=== PATIENT | male | born 1945 | race African-American/Black ===

== ENCOUNTER 2018-12-13 17:17 | Inpatient (IN) | payer MEDICARE ==
[~2018-12-13] VITALS: Ht 188 cm; Wt 77.9 kg
[2018-12-13] MEDS ORDERED: ACETAMINOPHEN 500 MG TABLET ONE (18:24)
[2018-12-13] MEDS ORDERED: MORPHINE SULFATE 4 MG/ML, 1ML ONE (18:24)
[2018-12-13] MEDS ORDERED: SODIUM CHLORIDE FLUSH 10ML SYR IVF ONE (18:30)
[2018-12-13] MEDS ORDERED: MORPHINE SULFATE 4 MG/ML, 1ML IVPush PRN (18:30)
[2018-12-13] MEDS ORDERED: ACETAMINOPHEN 500 MG TABLET PO ONE (18:30)
[2018-12-13 18:44] LABS: MEAN CORPUSCULAR HEMOGLOBIN 29.9 pg (27.5-34.5); MEAN CORPUSCULAR HGB CONC 32.8 g/dL (33.2-36.2); MEAN CORPUSCULAR VOLUME 91.2 fL (81-97); MEAN PLATELET VOLUME 8.9 fL (7.4-10.4); PLATELET COUNT 209 x10^3/uL (130-400); RED BLOOD COUNT 4.76 x10^6/uL (4.38-5.82); RED CELL DISTRIBUTION WIDTH 14.4 % (9.4-14.8)
[2018-12-13] MEDS ORDERED: PRED2.5T PO (18:44)
[2018-12-13] MEDS ORDERED: TRIAM/HCTZ PO (18:44)
[2018-12-13] MEDS ORDERED: FLUT1DIS5 IH (18:44)
[2018-12-13] MEDS ORDERED: BRIM5DRO2 EACHEYE (18:44)
[2018-12-13] MEDS ORDERED: ALLO300T PO (18:44)
[2018-12-13 18:54] LABS: INTERNATIONAL NORMALIZED RATIO 1.53 (0.93-1.1)
--- NOTE | 2018-12-13 18:54 | NUR ---
assumed care for this pt.
[2018-12-13 18:56] LABS: ALBUMIN 2.9 g/dL (3.4-5.0); ANION GAP 8 mmol/L (5-15); CHLORIDE 103 mmol/L (98-107)
[2018-12-13 19:00] LABS: ALANINE AMINOTRANSFERASE 14 U/L (12-78); ALKALINE PHOSPHATASE 107 U/L (45-117); BILIRUBIN,TOTAL 1.6 mg/dL (0.2-1.0); CREATININE 1.44 mg/dL (0.7-1.3); TOTAL PROTEIN 7.6 g/dL (6.4-8.2)
[2018-12-13 19:05] LABS: MD YES
[2018-12-13 19:08] LABS: <PLATELET ESTIMATE> ADEQUATE; <PLT MORPHOLOGY> NORMAL PLT MORPH; <RBC MORPHOLOGY> NORMAL; BAND#(MANUAL) 7.04 x10^3/uL; BANDS%(MANUAL) 31 % (0-7); LYMPH#(MANUAL) 1.14 x10^3/uL (1-3.4); LYMPHS% (MANUAL) 5 % (22-44); MONOS#(MANUAL) 1.59 x10^3/uL (0.3-2.7); MONOS% (MANUAL) 7 % (2-9); PMNS WITH VACUOLES 1+; SEG#(MANUAL) 12.94 x10^3/uL (1.8-6.8); SEGS% (MANUAL) 57 % (42-75)
--- NOTE | 2018-12-13 19:18 | NUR ---
CRIT LAB PROCAL=35.81 DR BATISTA NOTIFIED.
[2018-12-13] MEDS ORDERED: SODIUM CHLORIDE 0.9% 1,000ML IVBOLUS ONE (19:30)
[2018-12-13] MEDS ORDERED: PHARMACOKINETIC CONSULTATION MC ONE (19:30)
[2018-12-13] MEDS ORDERED: VANCOMYCIN 1,600 MG in SODIUM CHLORIDE 0.9% 250 ML IV ONE (19:30)
[2018-12-13] MEDS ORDERED: PIPERACILLIN/TAZO/PMX 3.375GM 50 ML IV ONE (19:30)
[2018-12-13] MEDS ORDERED: VANCOMYCIN PER PHARMACY MC PRN ×2 (19:30→20:30)
[2018-12-13] MEDS ORDERED: PIPERACILLIN/TAZO/PMX 3.375GM 50 ML ONE (19:58)
[2018-12-13] MEDS ORDERED: ONDANSETRON 2MG/ML, 2ML IVPB PRN (20:30)
[2018-12-13] MEDS ORDERED: PHARMACY MAY ADJ FOR RENAL FX MC PRN (20:30)
[2018-12-13] MEDS ORDERED: ACETAMINOPHEN 325 MG TABLET PO PRN (20:30)
--- NOTE | 2018-12-13 20:46 | NUR ---
REPORT CALLED AND IV MEDS RUNNING ORDERED. PT A/O X 4 AND VSS WITH BP AT 110/61 AND HR AT 105
[2018-12-13] MEDS ORDERED: ALBUTEROL SULFATE 2.5 MG/3 ML NPPB SCH (21:30)
[2018-12-13] MEDS ORDERED: BUDESONIDE 0.5 MG/2 ML INHA NPPB SCH (21:30)
[2018-12-13] MEDS ORDERED: PHARMACOKINETIC MONITORING MC PRN (21:30)
[2018-12-13 22:00] VITALS: BP 100/66
[2018-12-13] MEDS: SODIUM CHLORIDE 0.9% 1,000 ML IV SCH (22:03)
[2018-12-13] MEDS: VANCOMYCIN 1,600 MG in SODIUM CHLORIDE 0.9% 250 ML IV SCH (22:03)
[2018-12-13] MEDS: ENOXAPARIN 40 MG/0.4 ML SQ SCH (23:42)
--- NOTE | 2018-12-13 23:44 | NUR ---
PT MEDICATED ORDERED FOR PAIN WITH ADMIT MD AT BEDSIDE.
[2018-12-14 02:17] VITALS: BP 95/65
[2018-12-14 05:07] LABS: MICROSCOPIC NOT IND
[2018-12-14 05:10] LABS: CULTURE INDICATED? NO
[2018-12-14] MEDS: PIPERACILLIN/TAZO/PMX 4.5GM 100 ML IVPB SCH ×3 (05:39→21:48)
[2018-12-14 05:49] LABS: MEAN CORPUSCULAR HEMOGLOBIN 30.1 pg (27.5-34.5); MEAN CORPUSCULAR HGB CONC 32.6 g/dL (33.2-36.2); MEAN CORPUSCULAR VOLUME 92.3 fL (81-97); PLATELET COUNT 200 x10^3/uL (130-400); RED BLOOD COUNT 4.54 x10^6/uL (4.38-5.82); RED CELL DISTRIBUTION WIDTH 14.9 % (9.4-14.8)
[2018-12-14 05:53] LABS: CHLORIDE 105 mmol/L (98-107)
[2018-12-14 05:57] LABS: ANION GAP 8 mmol/L (5-15); CALCIUM 7.9 mg/dL (8.5-10.1)
[2018-12-14 06:15] LABS: MD YES
[2018-12-14 06:16] LABS: EOS#(MANUAL) 0.17 x10^3/uL (0.0-0.4); EOS% (MANUAL) 1 % (1-7); MONOS#(MANUAL) 0.84 x10^3/uL (0.3-2.7); MONOS% (MANUAL) 5 % (2-9)
[2018-12-14 06:17] LABS: BAND#(MANUAL) 4.37 x10^3/uL; BANDS%(MANUAL) 26 % (0-7); LYMPH#(MANUAL) 0.34 x10^3/uL (1-3.4); LYMPHS% (MANUAL) 2 % (22-44); SEG#(MANUAL) 11.09 x10^3/uL (1.8-6.8); SEGS% (MANUAL) 66 % (42-75)
[2018-12-14 06:18] LABS: <RBC MORPHOLOGY> NORMAL
[2018-12-14 06:19] LABS: <PLATELET ESTIMATE> ADEQUATE; <PLT MORPHOLOGY> NORMAL PLT MORPH; PMNS WITH VACUOLES 1+
[2018-12-14] MEDS ORDERED: BUDESONIDE 0.5 MG/2 ML INHA NPPB SCH (09:00)
[2018-12-14] MEDS: ADVAIR INH SCH (09:00)
[2018-12-14] MEDS: TEMPLATE NON-FORMULARY MED. (Brimonidine Tartrate/Timolol (Combigan Eye Drops) 1 DROP) EACHEYE SCH (09:00)
[2018-12-14] MEDS: ALLOPURINOL 300 MG TABLET PO SCH (09:16)
[2018-12-14] MEDS: methylPREDNISolone SOD SUCC 40 MG/ML IV SCH (10:05)
[2018-12-14 10:46] VITALS: BP 103/70
[2018-12-14] MEDS: SODIUM CHLORIDE 0.9% 1,000 ML IV SCH ×2 (12:05→21:48)
[2018-12-14 14:56] VITALS: BP 110/76
[2018-12-14 15:24] LABS: CLOSTRIDIUM DIFFICILE ANTIGEN NEGATIVE; CLOSTRIDIUM DIFFICILE TOXIN NEGATIVE (Negative)
[2018-12-14 21:06] VITALS: BP 91/61
[2018-12-14] MEDS: ENOXAPARIN 40 MG/0.4 ML SQ SCH (21:47)
[2018-12-14] MEDS: VANCOMYCIN 1,600 MG in SODIUM CHLORIDE 0.9% 250 ML IV SCH (22:59)
[2018-12-14 23:00] VITALS: BP 108/70
[2018-12-15 01:51] VITALS: BP 119/75
[2018-12-15] MEDS: PIPERACILLIN/TAZO/PMX 4.5GM 100 ML IVPB SCH ×3 (05:20→20:41)
[2018-12-15 06:05] LABS: MEAN CORPUSCULAR HEMOGLOBIN 29.9 pg (27.5-34.5); MEAN CORPUSCULAR HGB CONC 32.6 g/dL (33.2-36.2); MEAN CORPUSCULAR VOLUME 91.8 fL (81-97); MEAN PLATELET VOLUME 9.1 fL (7.4-10.4); PLATELET COUNT 210 x10^3/uL (130-400); RED BLOOD COUNT 4.17 x10^6/uL (4.38-5.82); RED CELL DISTRIBUTION WIDTH 14.3 % (9.4-14.8)
[2018-12-15 06:16] LABS: ANION GAP 8 mmol/L (5-15); CALCIUM 8.3 mg/dL (8.5-10.1); CHLORIDE 107 mmol/L (98-107); CREATININE 0.85 mg/dL (0.7-1.3)
[2018-12-15 06:39] LABS: MD YES
[2018-12-15 06:40] LABS: BAND#(MANUAL) 1.75 x10^3/uL; BANDS%(MANUAL) 10 % (0-7); LYMPH#(MANUAL) 0.53 x10^3/uL (1-3.4); LYMPHS% (MANUAL) 3 % (22-44); MONOS#(MANUAL) 0.88 x10^3/uL (0.3-2.7); MONOS% (MANUAL) 5 % (2-9); SEG#(MANUAL) 14.35 x10^3/uL (1.8-6.8); SEGS% (MANUAL) 82 % (42-75)
[2018-12-15 06:41] LABS: <PLATELET ESTIMATE> ADEQUATE; <PLT MORPHOLOGY> NORMAL PLT MORPH; <RBC MORPHOLOGY> NORMAL
[2018-12-15 07:30] VITALS: BP 124/92
[2018-12-15] MEDS: ADVAIR INH SCH (09:00)
[2018-12-15] MEDS: TEMPLATE NON-FORMULARY MED. (Brimonidine Tartrate/Timolol (Combigan Eye Drops) 1 DROP) EACHEYE SCH (09:00)
[2018-12-15] MEDS: SODIUM CHLORIDE 0.9% 1,000 ML IV SCH ×2 (09:42→20:41)
[2018-12-15] MEDS: ALLOPURINOL 300 MG TABLET PO SCH (09:43)
[2018-12-15] MEDS: methylPREDNISolone SOD SUCC 40 MG/ML IV SCH (09:43)
[2018-12-15] MEDS ORDERED: ALBUTEROL SULFATE 2.5 MG/3 ML ONE (13:54)
[2018-12-15] MEDS ORDERED: SODIUM CHLORIDE INHALATION 7%, 4 ML NPPB ONE (14:00)
[2018-12-15 14:25] VITALS: BP 108/64
[2018-12-15 19:29] VITALS: BP 110/63
[2018-12-15] MEDS: ENOXAPARIN 40 MG/0.4 ML SQ SCH (20:41)
[2018-12-15] MEDS: VANCOMYCIN 1,600 MG in SODIUM CHLORIDE 0.9% 250 ML IV SCH (23:06)
[2018-12-16 01:23] VITALS: BP 109/68
[2018-12-16] MEDS: PIPERACILLIN/TAZO/PMX 4.5GM 100 ML IVPB SCH ×3 (04:34→20:36)
[2018-12-16 07:55] VITALS: BP 126/70
[2018-12-16] MEDS: ADVAIR INH SCH (09:00)
[2018-12-16] MEDS: TEMPLATE NON-FORMULARY MED. (Brimonidine Tartrate/Timolol (Combigan Eye Drops) 1 DROP) EACHEYE SCH (09:00)
[2018-12-16] MEDS: ALLOPURINOL 300 MG TABLET PO SCH (09:54)
[2018-12-16] MEDS: methylPREDNISolone SOD SUCC 40 MG/ML IV SCH (09:54)
[2018-12-16 09:58] LABS: MEAN CORPUSCULAR HGB CONC 33.1 g/dL (33.2-36.2); MEAN CORPUSCULAR VOLUME 93.8 fL (81-97); MEAN PLATELET VOLUME 9.1 fL (7.4-10.4); PLATELET COUNT 217 x10^3/uL (130-400); RED BLOOD COUNT 4.17 x10^6/uL (4.38-5.82); RED CELL DISTRIBUTION WIDTH 14.9 % (9.4-14.8)
[2018-12-16 10:07] LABS: ANION GAP 8 mmol/L (5-15); CALCIUM 8.6 mg/dL (8.5-10.1); CHLORIDE 110 mmol/L (98-107); CREATININE 0.93 mg/dL (0.7-1.3)
[2018-12-16 10:42] LABS: MD YES
[2018-12-16 10:44] LABS: <PLATELET ESTIMATE> ADEQUATE; <PLT MORPHOLOGY> NORMAL PLT MORPH; <RBC MORPHOLOGY> NORMAL; BAND#(MANUAL) 0.13 x10^3/uL; BANDS%(MANUAL) 1 % (0-7); LYMPH#(MANUAL) 0.92 x10^3/uL (1-3.4); LYMPHS% (MANUAL) 7 % (22-44); MONOS#(MANUAL) 0.53 x10^3/uL (0.3-2.7); MONOS% (MANUAL) 4 % (2-9); SEG#(MANUAL) 11.62 x10^3/uL (1.8-6.8); SEGS% (MANUAL) 88 % (42-75)
[2018-12-16] MEDS: SODIUM CHLORIDE 0.9% 1,000 ML IV SCH ×2 (12:58→20:36)
[2018-12-16 14:56] VITALS: BP 128/77
[2018-12-16 19:19] VITALS: BP 112/64
[2018-12-16] MEDS: ENOXAPARIN 40 MG/0.4 ML SQ SCH (21:54)
[2018-12-16] MEDS: VANCOMYCIN 1,600 MG in SODIUM CHLORIDE 0.9% 250 ML IV SCH (21:54)
[2018-12-17 01:35] VITALS: BP 135/71
[2018-12-17 01:40] VITALS: BP 113/69
[2018-12-17] MEDS: PIPERACILLIN/TAZO/PMX 4.5GM 100 ML IVPB SCH ×2 (05:00→13:06)
[2018-12-17 07:12] VITALS: BP 123/74
[2018-12-17] MEDS: ALLOPURINOL 300 MG TABLET PO SCH (08:19)
[2018-12-17] MEDS: ADVAIR INH SCH (08:19)
[2018-12-17] MEDS: TEMPLATE NON-FORMULARY MED. (Brimonidine Tartrate/Timolol (Combigan Eye Drops) 1 DROP) EACHEYE SCH (08:19)
[2018-12-17] MEDS: SODIUM CHLORIDE 0.9% 1,000 ML IV SCH (08:22)
[2018-12-17 08:23] LABS: MEAN CORPUSCULAR HEMOGLOBIN 28.8 pg (27.5-34.5); MEAN CORPUSCULAR HGB CONC 31.1 g/dL (33.2-36.2); MEAN CORPUSCULAR VOLUME 92.8 fL (81-97); MEAN PLATELET VOLUME 8.6 fL (7.4-10.4); PLATELET COUNT 255 x10^3/uL (130-400); RED BLOOD COUNT 4.31 x10^6/uL (4.38-5.82); RED CELL DISTRIBUTION WIDTH 14.7 % (9.4-14.8)
[2018-12-17 08:35] LABS: ANION GAP 6 mmol/L (5-15); CALCIUM 8.6 mg/dL (8.5-10.1); CHLORIDE 109 mmol/L (98-107); CREATININE 0.87 mg/dL (0.7-1.3)
[2018-12-17 08:40] LABS: BASOPHILS # (AUTO) 0.01 x10^3/uL (0-0.1); BASOPHILS % (AUTO) 0 % (0-1); EOSINOPHILS # (AUTO) 0.01 x10^3/uL (0-0.4); EOSINOPHILS % (AUTO) 0 % (1-7); LYMPHOCYTES % (AUTO) 7 % (22-44); MD SCAN; MONOCYTES # (AUTO) 0.98 x10^3/uL (0.2-0.8); MONOCYTES % (AUTO) 7 % (2-9); NEUTROPHILS # (AUTO) 12.05 x10^3/uL (1.8-6.8); NEUTROPHILS % (AUTO) 87 % (42-75)
[2018-12-17 09:58] VITALS: BP 129/70
[2018-12-17] MEDS ORDERED: LEVO750T26 PO (14:50)
[2018-12-17 15:11] VITALS: BP 148/77
[2018-12-17] MEDS ORDERED: VANCOMYCIN 1,600 MG in SODIUM CHLORIDE 0.9% 250 ML IV SCH (16:00)
[2018-12-17 16:30] VITALS: BP 159/82
== END 2018-12-17 17:10 | disposition home or self-care (01) | DRG 871 ==
LOC: ED 19:11 → EDIP 19:57 → 4NOR 21:06
PROVIDERS: ADMIT Hospitalist; ATTEND Hospitalist
DX: A41.9 Sepsis, unspecified organism (principal); J18.9 Pneumonia, unspecified organism; D68.69 Other thrombophilia; N17.9 Acute kidney failure, unspecified; J44.0 Chronic obstructive pulmonary disease with (acute) lower respiratory infection; R65.20 Severe sepsis without septic shock; Y95 Nosocomial condition; I48.2 Chronic atrial fibrillation; R53.81 Other malaise; M10.9 Gout, unspecified; T50.2X5A Adverse effect of carbonic-anhydrase inhibitors, benzothiadiazides and other diuretics, initial encounter; E86.9 Volume depletion, unspecified; E87.6 Hypokalemia; I10 Essential (primary) hypertension; R32 Unspecified urinary incontinence
CPT/HCPCS: 36415; 71045; 80048; 80053; 80202; 81003; 83605; 84145; 85025; 85610; 85730; 87040; 87081; 87324; 93005; 94640; 96374; 99291; G0378; J1650; J2405; J2543; J3370; J7626; J2920; J7030; J7050; J7512